=== PATIENT | female | born 1975 | race Caucasian/White ===

== ENCOUNTER 2021-01-16 08:21 | Outpatient (CLI) | payer BC ==
[2021-01-16 09:31] LABS: Basophils % (Auto) 0.5 % (0.0-1.8); Eosinophils # (Auto) 0.1 K/mm3 (0.0-0.4); Eosinophils % (Auto) 1.5 % (0.0-4.3); Hematocrit 37.5 % (30.3-42.9); Hemoglobin 12.9 gm/dl (10.1-14.3); Lymphocytes # (Auto) 1.6 K/mm3 (1.2-5.4); Lymphocytes % (Auto) 25.1 % (13.4-35.0); Mean Corpuscular HGB Conc 34 % (30-34); Mean Corpuscular Volume 93 fl (79-97); Monocytes # (Auto) 0.4 K/mm3 (0.0-0.8); Monocytes % (Auto) 6.1 % (0.0-7.3); Platelet Count 217 K/mm3 (140-440); Red Blood Count 4.03 M/mm3 (3.65-5.03); Red Cell Distribution Width 14.7 % (13.2-15.2)
[2021-01-16 09:36] LABS: Bacteria,Urine 1+ /HPF (Negative); Bilirubin,Urine NEG (Negative); Blood,Urine NEG (Negative); Color,Urine Yellow (Yellow); Mucus,Urine FEW /HPF; Protein,Urine <15 mg/dL mg/dL (Negative); Urobilinogen,Urine < 2.0 mg/dL (<2.0)
[2021-01-16 10:28] LABS: Alanine Aminotransferase 8 units/L (7-56); Albumin 4.2 g/dL (3.9-5); Blood Urea Nitrogen 14 mg/dL (7-17); Calcium 8.8 mg/dL (8.4-10.2); Chol/HDL Ratio 3.03 %; HDL Cholesterol 62 mg/dL (40-59); Hemolysis Index 0; LDL Cholesterol,Direct 124 mg/dL (50-130)
[2021-01-16 10:35] LABS: BUN/Creatinine Ratio 20
--- NOTE | 2021-01-16 11:47 | XRay Report ---
ABDOMEN 1 VIEW(S) INDICATION / CLINICAL INFORMATION: UNSPECIFIED ABDOMINAL PAIN. COMPARISON: None available. FINDINGS: TUBES / LINES: None. BOWEL GAS PATTERN: Mild to moderate fecal matter is present throughout the colon. No evidence for obs truction. FREE AIR / EXTRALUMINAL GAS: None seen. ADDITIONAL FINDINGS: No significant additional findings. IMPRESSION: Consider mild fecal retention. No acute process. Signer Name: Rivera Dickey Jr, MD Signed: 01/16/2021 9:11 AM Workstation Name: [id number]
== END 2021-01-16 08:22 | disposition home or self-care (01) ==
LOC: XRAY 08:21
PROVIDERS: ATTEND Internal Medicine
DX: R19.5 Other fecal abnormalities (principal); N39.0 Urinary tract infection, site not specified
CPT/HCPCS: 36415; 74018; 80053; 80061; 81001; 82306; 83036; 84443; 85025

== ENCOUNTER 2021-12-09 20:40 | Emergency (ER) | payer BC ==
[2021-12-09 22:47] VITALS: BP 121/76
--- NOTE | 2021-12-09 22:48 | Emergency Department Report ---
- General Stated Complaint: CHEST CONGESTION Time Seen by Provider: 12/09/21 22:45 - History of Present Illness Initial Comments: Patient presents with a several day history of chest congestion and cough. She has had subjective fevers and chills. She has had generalized malaise with muscle aches and body aches. She has been wheezing and having trouble breathing. She does not know of any coronavirus exposure. She has had no no influenza exposure. She came here for evaluation treatment because she was not feeling well. - Related Data Previous Rx's Medication Instructions Recorded Last Taken Type Albuterol Sulfate [Proventil Hfa] 6.7 gm IH 4XD #1 inh 12/09/21 Unknown Rx Benzonatate [Tessalon Perles] 100 mg PO Q8HR #30 cap 12/09/21 Unknown Rx predniSONE [Deltasone] 50 mg PO QDAY #5 tab 12/09/21 Unknown Rx Allergies Allergy/AdvReac Type Severity Reaction Status Date / Time Penicillins Allergy Rash Verified 12/09/21 22:46 ED Review of Systems ROS: Stated complaint: CHEST CONGESTION Other details as noted in HPI Comment: All other systems reviewed and negative Constitutional: fever Eyes: denies: vision change ENT: denies: throat pain Respiratory: cough Cardiovascular: denies: chest pain Endocrine: denies: unexplained weight loss Gastrointestinal: denies: abdominal pain Genitourinary: denies: dysuria Musculoskeletal: denies: back pain Skin: denies: rash Neurological: denies: headache Hematological/Lymphatic: denies: easy bruising ED Past Medical Hx - Past Medical History Previous Medical History?: No - Family History Family history: no significant - Medications Home Medications: Home Medications Medication Instructions Recorded Confirmed Last Taken Type Albuterol Sulfate [Proventil Hfa] 6.7 gm IH 4XD #1 inh 12/09/21 Unknown Rx Benzonatate [Tessalon Perles] 100 mg PO Q8HR #30 cap 12/09/21 Unknown Rx predniSONE [Deltasone] 50 mg PO QDAY #5 tab 12/09/21 Unknown Rx ED Physical Exam - General Limitations: No Limitations, Other (Pulse ox noted and normal) General appearance: alert, in no apparent distress - Head Head exam: Present: atraumatic, normocephalic - Eye Eye exam: Present: normal appearance, EOMI - ENT ENT exam: Present: normal orophraynx, normal external ear exam - Neck Neck exam: Present: normal inspection. Absent: meningismus - Respiratory Respiratory exam: Present: wheezes (Bilateral). Absent: respiratory distress - Cardiovascular Cardiovascular Exam: Present: regular rate, normal rhythm - GI/Abdominal GI/Abdominal exam: Present: soft. Absent: distended - Extremities Exam Extremities exam: Present: normal capillary refill. Absent: pedal edema - Back Exam Back exam: Absent: CVA tenderness (R), CVA tenderness (L) - Neurological Exam Neurological exam: Present: alert, oriented X3, CN II-XII intact, normal gait. Absent: motor sensory deficit - Psychiatric Psychiatric exam: Present: normal affect, normal mood - Skin Skin exam: Present: warm, dry ED Course Vital Signs 12/09/21 22:43 Temperature 98.6 F Pulse Rate 68 Respiratory 18 Rate Blood Pressure 121/76 [Right] O2 Sat by Pulse 97 Oximetry - Reevaluation(s) Reevaluation #1: 12/10/21 05:12 Patient was discharged ED Medical Decision Making - Medical Decision Making Patient presents with upper respiratory symptoms and wheezing. She likely has coronavirus. We have discussed isolation. She does not appear to have adventit ious breath sounds to suggest pneumonia. She is not hypoxic. She does not appear to be septic. She does not have pedal edema suggestive of congestive heart failure and does not describe orthopnea. Patient was treated symptomatically and referred for outpatient evaluation and follow-up. She can isolate and quarantine at home. Critical Care Time: No Critical care attestation.: If time is entered above; I have spent that time in minutes in the direct care of this critically ill patient, excluding procedure time. ED Disposition Clinical Impression: Acute URI, Wheezing Disposition: HOME / SELF CARE / HOMELESS Is pt being admited?: No Condition: Stable Instructions: Cough, Adult, [id number], Viral Respiratory Infection, [id number], How to Use a Dry Powder Inhaler, [id number] Additional Instructions: Use Tylenol and ibuprofen for fever. Push fluids. Return for problems. Follow-up with your regular doctor. Prescriptions: predniSONE [Deltasone] 50 mg PO QDAY #5 tab Albuterol Sulfate [Proventil Hfa] 6.7 gm IH 4XD #1 inh Benzonatate [Tessalon Perles] 100 mg PO Q8HR #30 cap Referrals: PRIMARY CARE, [Primary Care Provider] - 3-5 Days Print Language: ALBANIAN
== END 2021-12-09 23:34 | disposition home or self-care (01) ==
LOC: ED 20:40
DX: J06.9 Acute upper respiratory infection, unspecified (principal); R06.2 Wheezing; Z88.0 Allergy status to penicillin
CPT/HCPCS: 99282